=== PATIENT | female | born 1995 | race Caucasian/White ===

== ENCOUNTER 2017-03-23 01:38 | Inpatient (IN) | payer OTHER ==
[~2017-03-23] VITALS: Ht 152.4 cm; Wt 57.9 kg
[2017-03-23 04:42] VITALS: BP 101/76
[2017-03-23] MEDS ORDERED: ZOLPIDEM TARTRATE 10 MG TABLET PO PRN (04:45)
[2017-03-23] MEDS ORDERED: QUEtiapine FUMARATE 100 MG TABLET PO PRN (04:45)
[2017-03-23] MEDS ORDERED: LORazepam 1 MG TABLET PO PRN (04:45)
[2017-03-23 07:45] VITALS: BP 101/64
[2017-03-23 08:00] VITALS: BP 101/64
[2017-03-23 08:59] LABS: BASOPHILS % (AUTO) 0.6 % (0.0-2.0); EOSINOPHILS % (AUTO) 1.2 % (1.0-6.0); HEMATOCRIT 40.8 % (36-46); HEMOGLOBIN 13.9 g/dL (12.0-16.0); LYMPHOCYTES # (AUTO) 2.6 K/uL (1.0-4.8); LYMPHOCYTES % (AUTO) 42.5 % (22.0-44.0); MEAN CORPUSCULAR HEMOGLOBIN 30.3 pg (26.0-34.0); MEAN CORPUSCULAR VOLUME 89 fL (80-100); MONOCYTES # (AUTO) 0.4 K/uL (0.1-1.0); MONOCYTES % (AUTO) 6.9 % (2.0-9.0); NEUTROPHILS % (AUTO) 48.8 % (40.0-70.0); PLATELET COUNT (AUTO) 256 K/uL (150-450); RED BLOOD CELL COUNT(AUTO) 4.58 MIL/uL (4.00-5.20); RED CELL DISTRIBUTION WIDTH 12.9 % (11.5-14.5); WHITE BLOOD COUNT (AUTO) 6.2 K/uL (4.5-11.0)
[2017-03-23 09:29] LABS: HEMOGLOBIN A1C 5.2 % (4.5-6.2)
[2017-03-23 09:36] LABS: ALANINE AMINOTRANSFERASE 20 U/L (12-78); ANION GAP 9 mmol/L (8-16); ASPARTATE AMINOTRANSFERASE 19 U/L (15-37); BILIRUBIN,TOTAL 0.4 mg/dL (0.1-1.0); CALCIUM, TOTAL 9.4 mg/dL (8.8-10.5); CARBON DIOXIDE 27 mmol/L (22-29); CHLORIDE 106 mmol/L (98-107); CHOL/HDL RATIO 2.9 (3.9-5.7); CREATININE 0.59 mg/dL (0.60-1.30); GLOMERULAR FILTR. RATE CALC > 60 mL/min (>60); POTASSIUM 3.8 mmol/L (3.5-5.1); SODIUM SERUM 142 mmol/L (136-145); THYROID STIMULATING HORMONE 1.62 uIU/mL (0.36-3.74); TOTAL PROTEIN, SERUM 7.1 g/dL (6.4-8.2); UREA NITROGEN, BLOOD 7 mg/dL (7-18)
[2017-03-23 16:35] VITALS: BP 101/67
[2017-03-23] MEDS: MIRTAZAPINE 15 MG TABLET PO SCH (20:36)
[2017-03-24] VITALS: BP 102/61
[2017-03-24 08:00] VITALS: BP 107/79
[2017-03-24 08:23] LABS: GLUCOSE, URINE (UA) NEGATIVE (NEGATIVE); KETONES,URINE NEGATIVE (NEGATIVE); LEUKOCYTE ESTERASE ,URINE NEGATIVE (NEGATIVE); OCCULT BLOOD,URINE NEGATIVE (NEGATIVE); PH,URINE 6.5 (5.0-8.0); PROTEIN,URINE NEGATIVE (NEGATIVE)
[2017-03-24 08:25] LABS: ADD UA MICROSCOPIC NO; APPEARANCE,URINE CLEAR (CLEAR)
[2017-03-24 16:10] VITALS: BP 117/69
[2017-03-24] MEDS: MIRTAZAPINE 15 MG TABLET PO SCH (20:05)
[2017-03-25 04:47] VITALS: BP 106/61
[2017-03-25 08:20] VITALS: BP 112/59
[2017-03-25 16:12] VITALS: BP 103/68
[2017-03-25] MEDS: MIRTAZAPINE 15 MG TABLET PO SCH (20:32)
[2017-03-26 06:35] VITALS: BP 105/63
[2017-03-26 08:15] VITALS: BP 110/71
[2017-03-26 16:02] VITALS: BP 130/66
[2017-03-26] MEDS: MIRTAZAPINE 15 MG TABLET PO SCH (20:08)
[2017-03-27 06:36] VITALS: BP 109/67
[2017-03-27 09:12] VITALS: BP 103/65
[2017-03-27] MEDS ORDERED: MIRT30 PO (10:43)
== END 2017-03-27 13:15 | disposition home or self-care (01) | DRG 885 ==
LOC: EDSTATUS 01:39 → B2X 04:02 → B2S 03-24 10:50
PROVIDERS: ADMIT Psychiatry & Neurology Psychiatry; ATTEND Psychiatry & Neurology Psychiatry
DX: F33.2 Major depressive disorder, recurrent severe without psychotic features (principal); R45.851 Suicidal ideations; S61.519A Laceration without foreign body of unspecified wrist, initial encounter; W45.8XXA Other foreign body or object entering through skin, initial encounter; Y93.89 Activity, other specified; Y92.89 Other specified places as the place of occurrence of the external cause; Y99.8 Other external cause status
CPT/HCPCS: 80307; 83036; 84439; 84443